=== PATIENT | female | born 1970 ===

== ENCOUNTER → 2016-12-13 | Outpatient (REF) | payer OTHER | LOC: M LABNEURO 17:40 | PROVIDERS: ATTEND Psychiatry & Neurology Neurology | DX: R74.8 Abnormal levels of other serum enzymes (principal) ==

== ENCOUNTER → 2017-03-18 | Outpatient (REF) | payer OTHER ==
[2017-03-18 13:53] LABS: FOLATE 9.8 NG/ML; VITAMIN B12 LEVEL 499 PG/ML
[2017-03-19 12:47] LABS: ALBUMIN % 51.5 % (55.8-66.1)
[2017-03-19 12:48] LABS: ALBUMIN 3.61 GM/DL (3.29-5.55); GAMMA GLOBULIN % 16.3 % (11.1-18.8)
[2017-03-21 08:07] LABS: Lyme Disease IgG/IgM Antibodie <0.91 ISR (0.00-0.90); Lyme Disease IgM Ab Quantitati <0.80 index (0.00-0.79); VITAMIN E LEVEL 17.6 mg/L (5.3-16.8)
== END ==
LOC: M LABNEURO 13:08
PROVIDERS: ATTEND Psychiatry & Neurology Neurology
DX: G62.9 Polyneuropathy, unspecified (principal)